=== PATIENT | male | born 1985 | race Caucasian/White ===

== ENCOUNTER 2020-08-17 14:37 | Emergency (ER) | payer OTHER ==
[~2020-08-17 14:37] MED LIST: IBUPROFEN800 MG PO; SUBOXONE 8 MG-1 EACH SL
[2020-08-17 15:32] LABS: HEMOGLOBIN 14.5 gm/dl (14.0-17.5); RED BLOOD COUNT 4.59 M/UL (4.20-5.50); WHITE BLOOD COUNT 13.4 K/UL (4.5-11.0)
[2020-08-17 16:00] LABS: BUN/CREATININE RATIO 8 (0-10)
[2020-08-17] MEDS ORDERED: ZOFRAN ODT 4 MG4 MG PO (17:51)
[2020-08-17] MEDS ORDERED: FLOMAX 0.4 MG0.4 MG PO (17:51)
[2020-08-17] MEDS ORDERED: IBUPROFEN800 MG PO (17:51)
== END 2020-08-17 18:06 | disposition home or self-care (01) ==
LOC: ER1 14:37
PROVIDERS: Nurse Practitioner
DX: N13.2 Hydronephrosis with renal and ureteral calculous obstruction (principal); Z90.89 Acquired absence of other organs; Z79.899 Other long term (current) drug therapy; F17.290 Nicotine dependence, other tobacco product, uncomplicated; Z87.442 Personal history of urinary calculi
CPT/HCPCS: 80053; 81001; 83605; 83690; 85025; 96374; 96375; 99284; J1885; J2405